=== PATIENT | male | born 1980 | race African-American/Black ===

== ENCOUNTER → 2017-07-13 | Outpatient (CLI) | payer MEDICAID | END | disposition home or self-care (01) | LOC: KCIC US 09:26 | DX: N18.1 Chronic kidney disease, stage 1 (principal); N32.89 Other specified disorders of bladder | CPT/HCPCS: 76770 ==

== ENCOUNTER 2018-10-17 23:55 | Emergency (ER) | payer MEDICAID ==
[~2018-10-17] VITALS: Ht 180.3 cm; Wt 91.2 kg
[2018-10-18 00:31] VITALS: BP 124/88
--- NOTE | 2018-10-18 00:57 | PHYS DOC ---
Adult General Chief Complaint Chief Complaint: PENIS PROBLEM HPI HPI Patient is a 38 year old male with no significant medical history who presents to the ED today with the significant female partner complaining of penile discharge for 2 days and requesting treatment for STDs. (KENYA GRANT APRN) Review of Systems Review of Systems Constitutional: Denies fever or chills [] : Reports penile discharge. Denies dysuria or hematuria [] Musculoskeletal: Denies back pain or joint pain [] Integument: Denies rash or skin lesions [] Neurologic: Denies headache, focal weakness or sensory changes [] All other systems were reviewed and found to be within normal limits, except as documented in this note. (KENYA GRANT APRN) Current Medications Current Medications Current Medications Medications (Trade) Dose Ordered Sig/Peggy Start Time Stop Time Status Last Admin Dose Admin Azithromycin (Zithromax) 1,000 mg 1X ONCE 10/18/18 02:00 10/18/18 02:01 DC 10/18/18 02:02 1,000 MG Ceftriaxone Sodium (Rocephin Im) 250 mg 1X ONCE 10/18/18 02:00 10/18/18 02:01 DC 10/18/18 02:02 250 MG Metronidazole (Flagyl) 2,000 mg 1X ONCE 10/18/18 02:00 10/18/18 02:01 DC 10/18/18 02:02 2,000 MG (CARLOS ALBERTO SPENCE DO) Allergies Allergies Allergies Coded Allergies Type Severity Reaction Last Updated Verified No Known Drug Allergies 10/18/18 No (CARLOS ALBERTO SPENCE DO) Physical Exam Physical Exam Constitutional: Well developed, well nourished, no acute distress, non-toxic appearance. [] Skin: Warm, dry, no erythema, no rash. [] Back: No tenderness, no CVA tenderness. [] Extremities: No tenderness, no cyanosis, no clubbing, ROM intact, no edema. [] Neurologic: Alert and oriented X 3, normal motor function, normal sensory function, no focal deficits noted. [] Psychologic: Affect normal, judgement normal, mood normal. [] (KENYA GRANT APRN) Current Patient Data Vital Signs Vital Signs Date Time Temp Pulse Resp B/P (MAP) Pulse Ox O2 Delivery O2 Flow Rate FiO2 10/18/18 00:31 98.6 81 16 124/88 (100) 98 Room Air 98.6 (CARLOS ALBERTO SPENCE DO) EKG EKG [] (KENYA GRANT APRN) Radiology/Procedures Radiology/Procedures [] (KENYA GRANT APRN) Course & Med Decision Making Course & Med Decision Making Pertinent Labs and Imaging studies reviewed. (See chart for details) This is a 38-year-old male patient presenting to the ED today with STD concerns. Patient was provided treatment as well as education. Follow-up with the health department as needed. (KENYA GRANT APRN) Dragon Disclaimer Dragon Disclaimer This electronic medical record was generated, in whole or in part, using a voice recognition dictation system. (KENYA GRANT APRN) Departure Departure Impression: Primary Impression: Concern about STD in male without diagnosis Disposition: 01 HOME, SELF-CARE Condition: STABLE Referrals: GOMEZ LOUISE MD (PCP) Follow-up in 1-2 weeks Patient Instructions: Sexually Transmitted Disease Additional Instructions: You were treated for sexually transmitted diseases in the emergency room, use protection at all times. Contact all your sex partners, let them know you were treated for STDs and ask them to seek treatment too. Do not have any sexual intercourse for one week. Attending Signature Attending Signature I have reviewed the PA/RE[employer] ESTATE LEASING AGENT's note and plan of care. I was available for consultation as needed during the patient's visit in the emergency department. I agree with the clinical impression, plan, and disposition. (CARLOS ALBERTO SPENCE DO) KENYA GRANT APRN Oct 18, 2018 00:57 CARLOS ALBERTO SPENCE DO Oct 19, 2018 04:21
[2018-10-18] MEDS ORDERED: AZITHROMYCIN 250 MG TABLET. PO ONE (02:00)
[2018-10-18] MEDS ORDERED: cefTRIAXone IM 250 MG VIAL IM ONE (02:00)
[2018-10-18] MEDS ORDERED: metroNIDAZOLE 500 MG TABLET PO ONE (02:00)
== END 2018-10-18 02:18 | disposition home or self-care (01) ==
LOC: ER 23:55
DX: R36.9 Urethral discharge, unspecified (principal); Z20.2 Contact with and (suspected) exposure to infections with a predominantly sexual mode of transmission
CPT/HCPCS: 87491; 87591; 96372; 99284; J0696; Q0144

== ENCOUNTER 2019-11-08 22:01 | Emergency (ER) | payer MEDICAID ==
[~2019-11-08] VITALS: Ht 180.3 cm; Wt 100.0 kg
--- NOTE | 2019-11-09 00:15 | PHYS DOC ---
Past Medical History Past Medical History: Asthma, Depression Past Surgical History: No Surgical History Smoking Status: Current Some Day Smoker Alcohol Use: Heavy Drug Use: Marijuana General Adult EDM: Chief Complaint: ABDOMINAL PAIN HPI: HPI: 39-year-old male past medical history significant for asthma, seasonal allergies, cigar use, GERD and alcohol use every other day, presents to the ED with complaints of intermittent episodes of left lower quadrant "tight," nonradiating abdominal pain, reports it is hard to breathe/worsens his symptoms and it john after he pees. Last bowel movement was this morning at 10 AM, normal brown color. No relief with Pepto-Bismol. States symptoms have been going on and off since beginning of October but got worse today. Saw his primary care physician Dr. Louise and was "screened" for stis via urine sample, not prescribed any medications. Does report unprotected intercourse. Review of Systems: Review of Systems: Constitutional: Denies fever or chills. [] Eyes: Denies change in visual acuity. [] HENT: Denies nasal congestion or sore throat. [] Respiratory: Denies cough or shortness of breath. [] Cardiovascular: Denies chest pain or edema. [] GI: Denies nausea, vomiting, bloody stools or diarrhea. [] : Denies dysuria. [] or Hematuria or urethral discharge Musculoskeletal: Denies joint pain. [] Integument: Denies rash. [] Neurologic: Denies headache, focal weakness or sensory changes. [] Endocrine: Denies polyuria or polydipsia. [] Lymphatic: Denies swollen glands. [] Psychiatric: Denies depression or anxiety. [] Heart Score: Risk Factors: Risk Factors: DM, Current or recent (<one month) smoker, HTN, HLP, family history of CAD, obesity. Risk Scores: Score 0 - 3: 2.5% MACE over next 6 weeks - Discharge Home Score 4 - 6: 20.3% MACE over next 6 weeks - Admit for Clinical Observation Score 7 - 10: 72.7% MACE over next 6 weeks - Early Invasive Strategies Allergies: Allergies: Allergies Coded Allergies Type Severity Reaction Last Updated Verified No Known Drug Allergies 10/18/18 No Physical Exam: PE: Constitutional: Well developed, well nourished, no acute distress, non-toxic appearance. [] HENT: Normocephalic, atraumatic, bilateral external ears normal, oropharynx moist, no oral exudates, nose normal. [] Eyes: PERRLA, EOMI, conjunctiva normal, no discharge. [] Neck: Normal range of motion, no tenderness, supple, no stridor. [] Cardiovascular:Heart rate regular rhythm, no murmur [] Lungs & Thorax: Bilateral breath sounds clear to auscultation [] Abdomen: Bowel sounds normal, soft, no tenderness, no masses, no pulsatile masses. [] Skin: Warm, dry, no erythema, no rash. [] Back: No tenderness, no CVA tenderness. [] Extremities: No tenderness, no cyanosis, no clubbing, ROM intact, no edema. [] Neurologic: Alert and oriented X 3, normal motor function, normal sensory function, no focal deficits noted. [] Psychologic: Affect normal, judgement normal, mood normal. [] Current Patient Data: Vital Signs: Vital Signs Date Time Temp Pulse Resp B/P (MAP) Pulse Ox O2 Delivery O2 Flow Rate FiO2 11/08/19 23:42 98.7 105 18 162/103 (122) 98 Room Air 98.7 EKG: EKG: [] Radiology/Procedures: Radiology/Procedures: IMAGING REPORT Signed PATIENT: DANICA CARVALHO ACCOUNT: [id number] : 1980 LOCATION: ER AGE: 39 SEX: M EXAM STATUS: REG ER ORD. PHYSICIAN: PRABHJOT BHATIA DO REASON: abd pain, llq PROCEDURE: CT ABD PELV W/ IV CONTRST ONLY INDICATION: Reason: abd pain, llq / Spl. Instructions: / History: COMPARISON: None. TECHNIQUE: Axial CT images obtained through the abdomen and pelvis. One or more of the following individualized dose reduction techniques were utilized for this examination: 1. Automated exposure control; 2. Adjustment of the mA and/or kV according to patient size; 3. Use of iterative reconstruction technique. FINDINGS: Abdominal aorta is not aneurysmal. Scattered calcific atherosclerosis. Low-density lesion within the right lobe the liver measuring up to 18 mm with some suspected peripheral enhancement. No intrahepatic bile duct dilation. No peripancreatic fluid collection. Spleen is small in size. Urinary bladder is partially distended. No hydronephrosis. Colonic diverticulosis, mild. No periappendiceal inflammatory changes. The appendix is not dilated. No dilated loops of bowel to suggest obstruction. Degenerative changes the spine with some disc protrusions including at L4-5 with associated mild central canal stenosis. There is also some narrowing of the neural foramina. IMPRESSION: * No evidence of bowel obstruction, hydronephrosis or appendicitis. * Low-density lesion within the right lobe the liver with peripheral enhancement. The most likely cause is hemangioma in a patient of this age unless they have known history of neoplasm. Electronically signed by: Giovanny Adair MD (11/09/2019 1:18 AM) [id number] Course & Med Decision Making: Course & Med Decision Making Pertinent Labs and Imaging studies reviewed. (See chart for details) Concern for left sided abdominal pain. Labs unremarkable with no leukocytosis. Patient afebrile very well-appearing and in no active distress. Urinalysis with no infection, RBCs or blood. CT abdomen pelvis showing possible liver hemangioma but no acute pathology. Re-eval patient reports primary care physician did not check in for any STDs. Has urgency after urinating but no urethral discharge. Will treat for chlamydi/gonorrhea and have patient follow- up with primary care physician for blood-borne diseases. Denies genital rash. Will recommend follow-up outpatient with GI. Strict ED return precautions given for severe worsening abdominal pain. Encouraged urgent outpatient follow-up with PMD and GI. Life-threatening processes were considered but are low suspicion at this time, given history and physical exam. Pt was educated on all prescription medications and adverse effects. All patient's questions were answered and pt was stable at time of discharge. Differential includes aortic dissection, aortic aneurysm, acute coronary syndrome, surgical abdomen (appendicitis, cholecystitis, ischemic bowel, strangulated hernia, etc), bowel obstruction or volvulus, bladder outlet obstruction, gastrointestinal bleeding, inflammatory bowel disease, peptic ulcer disease, sepsis, diverticular disease, ureterolithiasis, nephrolithiasis, ovarian or testicular torsion, ectopic , vaginal hemorrhage of infection I spoken with the patient and her caregivers. I explained the patient's condition, diagnoses and treatment plan based on the information available to me at this time. I have answered the patient and her caregiver's questions and addressed any concerns. The patient and her caregivers have a good understanding of patient's diagnosis, condition and treatment plan as can be expected at this point. Vital signs have been stable. Patient's condition is stable and appropriate for discharge from the emergency department. Patient will pursue further outpatient evaluation with primary care physician or other designated or consulting physician as outlined in the discharge instructions. The patient and/or caregivers are agreeable to this plan of care and follow-up instructions have been explained in detail. The patient and/or caregivers have received these instructions in written form and have expressed an understanding of the discharge instructions. The patient and/or caregivers are aware that any significant change of condition or worsening of symptoms should prompt immediate return to this or the closest emergency department or call to 911. [employer] Disclaimer: [employer] Disclaimer: This electronic medical record was generated, in whole or in part, using a voice recognition dictation system. Departure Departure Impression: Primary Impression: Abdominal pain Disposition: 01 HOME, SELF-CARE Condition: STABLE Referrals: GOMEZ LOUISE MD (PCP) Patient Instructions: Abdominal Pain Additional Instructions: Laith Trejo MD Primary Specialties Gastroenterology [facility] Address: [address] [place] [address] EMERGENCY DEPARTMENT GENERAL DISCHARGE INSTRUCTIONS Thank you for coming to [facility] Emergency Department (ED) today and trusting us with you care. We trust that you had a positive experience in our Emergency Department. If you wish to speak to the department management, you may call the Director at [phone]. YOUR FOLLOW UP INSTRUCTIONS ARE FOLLOWS: 1. Do you have a private Doctor? If you do not have a private doctor, please ask for a resource list of physicians or clinics that may be able to assist you with follow up care. 2. The Emergency Physicain has interpreted your x-rays. The X-Ray specialist will also review them. If there is a change in the findings, you will be notified in 48 hours when at all possible. 3. A lab test or culture has been done, your results will be reviewed and you will be notified if you need a change in treatment. ADDITIONAL INSTRUCTIONS AND INFORMATION: 1. Your care today has been supervised by a physician who is specially trained in emergency care. Many problems require more than one evaluation for a complete diagnosis and treatment. We recommend that you schedule your follow up appointment as recommended to ensure complete treatment of you illness or injury. If you are unable to obtain follow up care and continue to have a problem, or if your condition worsens, we recommend that you return to the ED. 2. We are not able to safely determine your condition over the phone nor are we able to give sound medical advice over the phone. For these safety reasons, if you call for medical advice we will ask you to come to the ED for further evaluation. 3. If you have any questions regarding these discharge instructions please call the ED at [phone]. SAFETY INFORMATION: In the interest of safety, wellness, and injury prevention; we encourage you to wear your sealbelt, if you smoke; quite smoking, and we encourage family to use a protective helmet for bicycling and other sporting events that present an increased risk for head injury. IF YOUR SYMPTOMS WORSEN OR NEW SYMPTOMS DEVELOP, OR YOU HAVE CONCERNS ABOUT YOUR CONDITION; OR IF YOUR CONDITION WORSENS WHILE YOU ARE WAITING FOR YOUR FOLLOW UP APPOINTMENT; EITHER CONTACT YOUR PRIMARY CARE DOCTOR, THE PHYSICIAN WHOSE NAME AND NUMBER YOU WERE GIVEN, OR RETURN TO THE ED IMMEDIATELY. Justicifation of Admission Dx: Justifications for Admission: Justification of Admission Dx: N/A PRABHJOT SLATER DO Nov 09, 2019 00:15
[2019-11-09 00:23] LABS: BASO # 0.1 x10^3/uL (0.0-0.2); BASO % 1 % (0-3); EOS # 0.2 x10^3/uL (0.0-0.7); EOS % 2 % (0-3); HEMATOCRIT 45.3 % (39.0-53.0); LYMPH # 2.2 x10^3/uL (1.0-4.8); LYMPH % 24 % (24-48); MEAN CORPUSCULAR HEMOGLOBIN 34 pg (25-35); MEAN CORPUSCULAR HGB CONC 35 g/dL (31-37); MEAN CORPUSCULAR VOLUME 96 fL (79-100); MONO % 11 % (0-9); NEUT # 5.5 x10^3/uL (1.8-7.7); NEUT % 62 % (31-73); PLATELET COUNT 302 x10^3/uL (140-400); RED BLOOD COUNT 4.73 x10^6/uL (4.30-5.70); RED CELL DISTRIBUTION WIDTH 12.8 % (11.5-14.5); WHITE BLOOD COUNT 8.9 x10^3/uL (4.0-11.0)
[2019-11-09 00:28] LABS: BILIRUBIN,URINE NEGATIVE (NEG); CLARITY,URINE CLEAR; COLOR,URINE YELLOW; NITRITE,URINE NEGATIVE (NEG); PROTEIN,URINE NEGATIVE (NEG-TRACE)
[2019-11-09 00:30] LABS: CALCIUM 9.6 mg/dL (8.5-10.1); CREATININE 1.3 mg/dL (0.7-1.3); GFR 74.4; POTASSIUM 3.5 mmol/L (3.5-5.1)
[2019-11-09 00:34] LABS: BACTERIA,URINE 0 /HPF (0-FEW); WBC,URINE OCC /HPF (0-4)
[2019-11-09 00:37] LABS: ALBUMIN 4.3 g/dL (3.4-5.0); DIRECT BILIRUBIN 0.1 mg/dL (0.0-0.2); TOTAL BILIRUBIN 0.5 mg/dL (0.2-1.0); TOTAL PROTEIN 8.3 g/dL (6.4-8.2)
[2019-11-09] MEDS ORDERED: CONTRAST GIVEN. MC PRN (01:00)
[2019-11-09] MEDS ORDERED: IOHEXOL 300 MG/ML 100ML VIAL. IV ONE (01:00)
--- NOTE | 2019-11-09 01:21 | RAD ---
INDICATION: Reason: abd pain, llq / Spl. Instructions: / History: COMPARISON: None. TECHNIQUE: Axial CT images obtained through the abdomen and pelvis. One or more of the following individualized dose reduction techniques were utilized for this examination: 1. Automated exposure control; 2. Adjustment of the mA and/or kV according to patient size; 3. Use of iterative reconstruction technique. FINDINGS: Abdominal aorta is not aneurysmal. Scattered calcific atherosclerosis. Low-density lesion within the right lobe the liver measuring up to 18 mm with some suspected peripheral enhancement. No intrahepatic bile duct dilation. No peripancreatic fluid collection. Spleen is small in size. Urinary bladder is partially distended. No hydronephrosis. Colonic diverticulosis, mild. No periappendiceal inflammatory changes. The appendix is not dilated. No dilated loops of bowel to suggest obstruction. Degenerative changes the spine with some disc protrusions including at L4-5 with associated mild central canal stenosis. There is also some narrowing of the neural foramina. IMPRESSION: * No evidence of bowel obstruction, hydronephrosis or appendicitis. * Low-density lesion within the right lobe the liver with peripheral enhancement. The most likely cause is hemangioma in a patient of this age unless they have known history of neoplasm. Electronically signed by: Giovanny Adair MD (11/09/2019 1:18 AM) [id number]
[2019-11-09 02:45] VITALS: BP 140/82
[2019-11-09] MEDS ORDERED: cefTRIAXone IM 250 MG VIAL IM ONE (04:00)
[2019-11-09] MEDS ORDERED: AZITHROMYCIN 250 MG TABLET. PO ONE (04:00)
== END 2019-11-09 03:06 | disposition home or self-care (01) ==
LOC: ER 22:01
DX: R10.32 Left lower quadrant pain (principal); J45.909 Unspecified asthma, uncomplicated; F32.9 Major depressive disorder, single episode, unspecified; K21.9 Gastro-esophageal reflux disease without esophagitis; F12.90 Cannabis use, unspecified, uncomplicated; F10.10 Alcohol abuse, uncomplicated; F17.290 Nicotine dependence, other tobacco product, uncomplicated
CPT/HCPCS: 36415; 74177; 80048; 80076; 81001; 82550; 83690; 85025; 87491; 87591; 96372; 99285; J0696; Q9967

== ENCOUNTER → 2019-12-08 | Outpatient (CLI) | payer MEDICAID ==
[2019-11-09 02:45] VITALS: BP 140/82
--- NOTE | 2019-12-08 13:50 | RAD ---
TESTICULAR/SCROTUM History: Left-sided testicular pain Comparison: None other than CT abdomen pelvis exam November 09, 2019 Findings: Multiple grayscale, color, and duplex spectral analysis waveform images of the testicles and scrotum are submitted. Right testicle measured 3.4 x 4.2 x 2.3 cm left testicle measured 2.6 x 3.8 x 2.7 cm. No intratesticular mass is demonstrated on either side. There is normal low resistance vascularity of interrogated intratesticular vessels bilaterally. There are small bilateral hydroceles. There are also bilateral varicoceles, somewhat larger on the left. There are microcalcifications of the left testicle. There is small left epididymal cyst up to 0.3 cm. Impression: 1. There are bilateral varicoceles of uncertain chronicity. No significant retroperitoneal lymphadenopathy was demonstrated on November 09, 2019 CT abdomen pelvis exam. 2. There is no evidence of testicular torsion or intratesticular mass. Electronically signed by: Froylan Ferreira MD (12/08/2019 1:47 PM) [facility]
== END ==
LOC: US 11:57
PROVIDERS: ATTEND Internal Medicine
DX: I86.1 Scrotal varices (principal); N50.3 Cyst of epididymis; N50.812 Left testicular pain
CPT/HCPCS: 76870